=== PATIENT | female | born 1985 | race Caucasian/White ===

== ENCOUNTER 2017-08-22 00:50 | Emergency (ER) | payer OTHER ==
[~2017-08-22] VITALS: Ht 167.6 cm; Wt 61.2 kg
[2017-08-22 00:54] VITALS: BP_SYST 119
--- NOTE | 2017-08-22 00:54 | NUR ---
[facility]. Side rails up. Report given to [place] BERG.
--- NOTE | 2017-08-22 00:55 | NUR ---
Patient brought to ED by [facility] ambulatory with handcuffs for medical clearance for booking. Patient has Hx of seizures. Denies pain at this time. No additional complaints. Vital signs within normal limits.
--- NOTE | 2017-08-22 01:00 | NUR ---
ED Olivia at bedside for medical evaluation.
[2017-08-22 01:17] VITALS: BP_SYST 121
--- NOTE | 2017-08-22 01:17 | NUR ---
Patient given written and verbal discharge instructions and verbalizes understanding. ER MD discussed with patient the results and treatment provided. Patient in stable condition. ID arm band removed. No Rx given. Patient educated on pain management and to follow up with PMD. Pain Scale 0/10. Opportunity for questions provided and answered.
== END 2017-08-22 01:17 ==
LOC: SED 00:50
DX: Z02.89 Encounter for other administrative examinations (principal); J45.909 Unspecified asthma, uncomplicated; G40.909 Epilepsy, unspecified, not intractable, without status epilepticus; Z91.041 Radiographic dye allergy status; Z91.040 Latex allergy status
CPT/HCPCS: 99283

== ENCOUNTER 2017-08-22 10:20 | Emergency (ER) | payer SELFPAY ==
[~2017-08-22] VITALS: Ht 160 cm; Wt 62.1 kg
[2017-08-22 10:20] VITALS: BP_SYST 106
--- NOTE | 2017-08-22 10:20 | NUR ---
ACCORDING TO KRAIG PEREZ, PT WAS SEEN HERE LAST NIGHT AND CLEARED FOR BOOKING. PT NOW STATES SHE HAS SEIZURES AND NEEDS TO BE CLEARED. OK TO BOOK PAPERWORK GIVEN TO OFFICER AND PT WAS TRIAGED. PT STATES THAT HER LAST SEIZURE WAS ABOUT 2 MONTHS AGO.
--- NOTE | 2017-08-22 10:49 | NUR ---
DR DICKERSON AT BEDSIDE FOR EVALUATION
--- NOTE | 2017-08-22 10:50 | NUR ---
Caridad fuentes in [facility] - 08/22/17 at [address] DICKERSON AT [facility] FOR EVALUATION
[2017-08-22 11:05] VITALS: BP_SYST 119
--- NOTE | 2017-08-22 11:06 | NUR ---
Patient given written and verbal discharge instructions and verbalizes understanding. ER MD discussed with patient the results and treatment provided. Patient in stable condition. ID arm band removed. Rx of NONE given. Patient educated on pain management and to follow up with PMD. Pain Scale 0/10. Opportunity for questions provided and answered. Medication side effect fact sheet provided.
== END 2017-08-22 11:05 ==
LOC: SED 10:20
DX: Z02.89 Encounter for other administrative examinations (principal); G40.909 Epilepsy, unspecified, not intractable, without status epilepticus; J45.909 Unspecified asthma, uncomplicated; Z91.041 Radiographic dye allergy status; Z91.040 Latex allergy status
CPT/HCPCS: 99283